=== PATIENT | female | born 1990 | race Caucasian/White ===

== ENCOUNTER 2018-01-27 05:25 | Outpatient (CLI) | END 2018-01-27 06:10 | disposition home or self-care (01) ==

== ENCOUNTER 2018-01-27 08:59 | Inpatient (IN) | END 2018-01-27 17:35 | disposition home or self-care (01) | DRG 775 ==

== ENCOUNTER 2019-03-16 07:20 | Inpatient (IN) | payer OTHER ==
[~2019-03-16] VITALS: Ht 170.2 cm; Wt 96.2 kg
[2019-03-16 08:38] VITALS: Ht 170.2 cm; Wt 96.2 kg
[2019-03-16] MEDS ORDERED: PNV11TAB PO (08:38)
[2019-03-16] MEDS ORDERED: OXYTOCIN 30 UNITS/LR 500 ML IV SCH ×2 (09:00→22:48)
[2019-03-16] MEDS ORDERED: MISOPROSTOL 200 MCG TAB PR PRN ×2 (09:00→23:00)
[2019-03-16] MEDS ORDERED: CARBOPROST 250 MCG INJ IM PRN ×2 (09:00→23:00)
[2019-03-16] MEDS ORDERED: OXYTOCIN 30 UNITS/LR 500 ML IV PRN ×2 (09:00→23:00)
[2019-03-16] MEDS ORDERED: CEFAZOLIN 2 GM/50 ML (PMX) 50 ML IVPB SCH (09:00)
[2019-03-16] MEDS ORDERED: METHYLERGONOVINE 0.2 MG INJ IM PRN ×2 (09:00→23:00)
[2019-03-16] MEDS: LACTATED RINGER'S 1,000 ML IV SCH ×2 (09:13→14:17)
--- NOTE | 2019-03-16 16:06 | PREAC ---
Date/Time of Note Date/Time of Note DATE: 03/16/19 TIME: 16:04 Anesthesia Eval and Record Evaluation Time Pre-Procedure Interview DATE: 03/16/19 TIME: 16:04 Age 28 Sex female NPO: 8 hrs Preoperative diagnosis Previous Planned procedure Repeat Past Medical History Past Medical History: None Surgery & Anesthesia Issues No known issue Meds Anticoagulation: No Beta Surya within 24 hr: No Reason Beta Surya not given: Pt. not on B-Surya Reported Medications [id number] ( 19) 1 Each Tablet, 1 TAB PO DAILY, TAB 03/16/19 Current Medications Lactated Ringer's 1,000 ml @ 125 mls/hr Q8H IV Last administered on 03/16/19at 14:17; Admin Dose 125 MLS/HR; Start 03/16/19 at 08:39 Cefazolin Sodium/ Dextrose 50 ml @ 100 mls/hr ONCE IVPB ; Start 03/16/19 at 09:00 Oxytocin/Lactated Ringer's 500 ml @ 125 mls/hr POST IV ; Start 03/16/19 at 09:00 Oxytocin/Lactated Ringer's 500 ml @ 0 mls/hr ONCE PRN IV .VAGINAL BLEEDING; Start 03/16/19 at 09:00 Methylergonovine Maleate (Methergine) 0.2 mg ONCE PRN IM .VAGINAL BLEEDING; Start 03/16/19 at 09:00 Carboprost Tromethamine (Hemabate) 250 mcg ONCE PRN IM .VAGINAL BLEEDING; Start 03/16/19 at 09:00 Misoprostol (Cytotec) 1,000 mcg ONCE PRN WI .VAGINAL BLEEDING; Start 03/16/19 at 09:00 Meds reviewed: Yes Allergies Coded Allergies: No Known Allergy (Unverified , 01/27/18) Allergies Reviewed: Yes Labs/Studies Labs Reviewed: Reviewed by anesthesiologist Result Diagram: 03/16/19 0900 Laboratory Tests 03/16/19 09:00 Blood Bank Test 03/16/19 09:00 Antibody Screen NEGATIVE Blood Type O POSITIVE Rh Immune Globulin Candidate NO test: N/A Pre-procedure Exam Airway: Adequate mouth opening Mallampati: Mallampati II Teeth: Normal Lung: Normal Heart: Normal ASA Physical Status ASA physical status: 2 Emergency: None Planned Anesthetic Neuraxial: Spinal Planned Pain Management Sub-arachniod narcotics Pre-operative Attestations Prior to commencing anesthesia and surgery, the patient was re-evaluated, there was verification of: *The patient's identity *The results of appropriate recent lab work and preoperative vital signs *The above evaluation not changing prior to induction *Anesthetic plan, risk benefits, alternative and complications discussed with patient/family; questions answered; patient/family understands, accepts and wishes to proceed. MORENA LAWRENCE MD Mar 16, 2019 16:06
[2019-03-16] MEDS ORDERED: PHENYLephrine (100 MCG/ML) 10ML SYG ONE (16:59)
[2019-03-16] MEDS ORDERED: OXYTOCIN 30 UNITS/LR 500 ML IV ONE (16:59)
[2019-03-16] MEDS ORDERED: ONDANSETRON 4 MG INJ ONE (17:00)
[2019-03-16] MEDS ORDERED: morphine SULFATE/PF (10 MG/10 ML) INJ ONE (17:00)
--- NOTE | 2019-03-16 18:28 | PAC ---
Date/Time of Note Date/Time of Note DATE: 03/16/19 TIME: 18:27 Post-Anesthesia Notes Post-Anesthesia Note Last documented vital signs VSS Activity: WNL Respiratory function: WNL Cardiovascular function: WNL Mental status: Baseline Pain reasonably controlled: Yes Hydration appropriate: Yes Nausea/Vomiting absent: Yes MORENA LAWRENCE MD Mar 16, 2019 18:28
--- NOTE | 2019-03-16 21:59 | HP ---
Date/Time of Note Date/Time of Note DATE: 03/16/19 TIME: 21:54 OB - History Hx of Present Free Text/Dictation Late entry note. 28-year-old -0-1-3 with single intrauterine at the 39 weeks with a PORTER of 03/23/2019 and history of 3 previous delivery desires repeat delivery and permanent surgical sterilization. She states good movement. She denies nausea, vomiting, shortness of breath, chest pain, headache, visual changes, vaginal bleeding or LOF. Risk factors: -Previous delivery x3 -Rubella nonimmune Chief Complaint: Scheduled for repeat delivery and bilateral tubal ligation Estimated Due Date: Mar 23, 2019 : 5 Para: 3 Spontaneous : 1 Therapeutic : 0 Care: Good Care Ultrasounds: Normal mid trimester US Obstetrical Complications: None Medical Complications: None Past Family/Social History * Past Medical, Surgical, Family and Obstetric Histories reviewed from chart. Blood Type: O+ Rubella: not immune RPR/VDRL: Negative GBS Status: Negative HBsAG: Negative OB Admission Exam Vital Signs Vital Signs Blood pressure 122/67, pulse rate 70/minutes, respiratory rate 14/minutes, temperature 98.1 Physical Exam HEENT: WNL Heart: Rhythm Normal Lungs: Clear Abdomen: WNL Extremities: Normal Membranes: Intact Heart Rate: 140's Accelerations: Accelerations Present Decelerations: No Decelerations Varibility: Moderate Contractions on Admission: None Last 72 hours Lab Results CBC & BMP 03/16/19 09:00 OB Assessment/Plan Other plan: 28 years old -0-1-3 with three previous delivery and single intrauterine at 39 weeks desires repeat delivery and permanent surgical sterilization -FHR: No sign of metabolic acidosis- Category I -Continuous EFM, toco -CBC, blood type and screen -Please see the orders -O+/Rubella: Nonimmune, will receive vaccine after delivery -GBS: Negative The risk of delivery and bilateral tubal ligation including but not limited to bleeding, infection, injury to other organs (bowel, bladder, ureter, vessels, nerves), injury to fetus, blood transfusion, blood transfusion related infection, risk of anesthesia, adhesion, needs for future , removal of uterus or any other indicated surgery, other contraceptive options including IUD, increased risk of ectopic if failure of procedure occurs discusse d with the patient and her family. She expressed understanding. All of her questions were answered. She signed the informed consent. PHYSICIAN'S VERIFICATION OF INFORMED CONSENT The patient was counseled regarding the procedure, its indications, risks, potential complications and alternatives and any questions were answered. Consent was obtained. PLANNED PROCEDURE/TREATMENT: delivery with possible using vacuum/forceps, bilateral tubal ligation and any other indicated surgery PHYSICIAN'S VERIFICATION OF INFORMED CONSENT FOR BLOOD TRANSFUSION: There is a reasonable possibility that blood transfusion will be necessary as a result of the patient's procedure. I have discussed the following with the patient/patient's legal customer account representative: An explanation of the benefits and ris ks of the transfusion of blood or blood products and the possible alternatives. All questions have been answered to the patient's satisfaction. INFORMED CONSENT:The patient has been informed of: The nature of the proposed care, treatment, services, medications, interventions or procedures. Potential benefits, risks or side effects, including potential problems related to recuperation. The likelihood of achieving care treatment and service goals. Reasonable alternatives to the proposed care, treatment and service. The relevant risks, benefits and side effects related to alternatives, incl uding the possible results of not receiving care, treatment and services. When indicated, any limitations on the confidentiality of information learned from or about the patient. If appropriate, the risks, benefits and alternatives of the drugs to be used for sedation/analgesia including moderate sedation. If appropriate, patient has been provided information on the risks, benefits and alternatives to the transfusion of blood and/or blood products. If appropriate, patient has been provided information regarding the [employer] Blood Act. YVONNE DENNIS Mar 16, 2019 21:58
--- NOTE | 2019-03-16 22:07 | OPR ---
Operative Report Planned Procedure Procedure date Mar 16, 2019 Procedure(s) 1. Repeat delivery 2. Bilateral tubal ligation Performed by see signature line Orthopedic Cast Specialist: AMI ELLER MD Anesthesiologist: MORENA LAWRENCE MD Pre-procedure diagnosis 28 years old -0-1-3 with three previous delivery and single intrauterine at 39 weeks desires repeat delivery and permanent surgical sterilization [id number] Anesthesia Type: [id number] spinal Post-Procedure Post-procedure diagnosis 28 years old -0-1-3 with three previous delivery and single intrauterine at 39 weeks desires repeat delivery and permanent surgical sterilization Findings 1. Normal uterus, fallopian tubes and ovaries 2. Viable male in cephalic presentation. 8 at one minute and 9 in 5 minutes. Weight: 6 pounds 15 ounces. Time of delivery: 17:37 3. Placenta with three vessel cord 4. Amniotic fluid - Clear Estimated Blood Loss: 500 - 600 mls Specimen(s) none Grafts/Implant(s) none Complication(s) none Pt Condition post procedure: stable Disposition: PACU Procedure Description INDICATION AND HISTORY: A 28 years old -0-1-3 with three previous delivery and single intrauterine at 39 weeks desires repeat delivery and permanent surgical sterilization. The risk of delivery and bilateral tubal ligation including but not limited to bleeding, infection, injury to other organs (bowel, bladder, ureter, vessels, nerves), injury to fetus, blood transfusion, blood transfusion related infection, risk of anesthesia, adhesion, needs for future , removal of uterus or any other indicated surgery, other contraceptive option including IUD, increased risk of ectopic if failure of procedure occurs discussed with the patient and her family. She expressed understanding. All of her questions were answered. She signed the informed consent. DESCRIPTION OF OPERATION: The patient was taken to the operating room, where she was identified and the procedure was verified. The patient received two gram of Ancef 30 minutes prior to surgery. Spinal anesthesia was placed by anesthesiology. The patient placed in the dorsal supine position with a left tilt. The heart rate was 1 28bpm. The patient was then prepped and draped in the normal sterile fashion. A Pfannenstiel skin incision was made and carried down to the fascia with knife. The fascia was incised in the midline and the fascial incision was carried laterally with Ballard scissors. The superior portion of the fascial incision was then grasped with Colin clamps and tented up and dissected off the underlying rectus muscle with sharp dissection. The lower portion of the fascial incision was then made in a similar fashion. The rectus muscle was and the peritoneum was entered. The peritoneal incision was then stretched and a bladder blade was inserted. Then, an incision was made in the lower uterine segment in a transverse fashion with a knife and extended bluntly. The was delivered atraumatically in cephalic presentation with the above findings. The umbilical cord was clamped and cut. The neonatology resuscitation team was present and the baby was handed to them. A cord blood sample was obtained for further evaluation. The placenta and membrane, which appeared normal were Removed. The uterus was exteriorized and cleared of all clot and debris. The uterus was then closed in a two layer fashion with 0-Monocryl. At the time of closure, hemostasis was noted. Then the left fallopian tube was identified and was grasped using Ammy clamp, segment of distal fallopian tube including fimbria was double ligated with O- plain, excised and sent to pathology. Same procedure repeated at the right side. Hemostasis of stump of both fallopian tube reassured. The gutters were irrigated. The peritoneum was reapproximated with 3-0 Vicryl. The muscle was reapproximated with 3-0 Vicryl. The fascia was approximated with 0-Vicryl in a running fashion. The subcutaneous tissue was re approximated with 3-0 vicryl. The skin was closed with 4-0 Monocryl. All instruments, sponges and needle counts were correct x3. The patient tolerated the procedure well. She transferred to the recovery room in stable condition. YVONNE DENNIS Mar 16, 2019 22:07
[2019-03-16] MEDS ORDERED: KETOROLAC 30 MG INJ IM ONE (22:44)
[2019-03-16] MEDS ORDERED: KETOROLAC 30 MG INJ IV ONE (22:58)
[2019-03-16] MEDS ORDERED: LANOLIN HPA 1 PKT TOP PRN (23:00)
[2019-03-16] MEDS ORDERED: HYDROmorphONE 1 MG/5 ML IV SYRINGE IV PRN ×3 (23:00)
[2019-03-16] MEDS ORDERED: MEPERIDINE 25 MG INJ IV PRN (23:00)
[2019-03-16] MEDS ORDERED: morphine 2 MG INJ IV PRN ×2 (23:00)
[2019-03-16] MEDS ORDERED: METHYLERGONOVINE 0.2 MG TAB PO PRN (23:00)
[2019-03-16] MEDS ORDERED: TRIMETHOBENZAMIDE 100 MG/ML VIAL IM PRN ×2 (23:00)
[2019-03-16] MEDS ORDERED: KETOROLAC 30 MG INJ IV PRN (23:00)
[2019-03-16] MEDS ORDERED: OXYCODONE/ACETAMINOPHEN (5/325) TAB PO PRN ×2 (23:00)
[2019-03-16] MEDS ORDERED: NALBUPHINE HCL (10 MG/1 ML) INJ IV PRN (23:00)
[2019-03-16] MEDS ORDERED: ALBUTEROL 0.083% (NEB) 2.5 MG/3 ML AMP HHN PRN (23:00)
[2019-03-16] MEDS ORDERED: EPHEDrine 25 MG/5 ML SYG IV PRN (23:00)
[2019-03-16] MEDS ORDERED: ONDANSETRON 4 MG INJ IV PRN ×2 (23:00)
[2019-03-16] MEDS ORDERED: LABETALOL HCL 20MG INJ IV PRN (23:00)
[2019-03-16] MEDS ORDERED: hydrALAzine 20 MG INJ IV PRN (23:00)
[2019-03-16] MEDS ORDERED: FENTAnyl 50 MCG/ML VIAL IV PRN ×3 (23:00)
[2019-03-16] MEDS ORDERED: DIPHENHYDRAMINE 50 MG INJ IV PRN ×2 (23:00)
[2019-03-16] MEDS ORDERED: IPRATROPIUM (NEB) 0.5 MG/2.5 ML AMP HHN PRN (23:00)
[2019-03-16] MEDS ORDERED: MIDAZOLAM 1 MG/ML 2 ML INJ IV PRN (23:00)
[2019-03-16] MEDS ORDERED: NALOXONE (0.4 MG/ML) INJ IV PRN (23:00)
[2019-03-16 23:10] VITALS: BP 101/55; PULSE 72; RESP 18
[2019-03-17 04:13] VITALS: BP 94/65; PULSE 74; RESP 18
[2019-03-17] MEDS: DEXTROSE 5%-LR 1,000 ML IV SCH ×3 (04:53→14:04)
[2019-03-17 08:05] VITALS: BP 97/55; PULSE 63; RESP 16
[2019-03-17] MEDS: SENNA/DOCUSATE NA (8.6MG/50MG) TAB PO SCH ×2 (09:22→22:57)
[2019-03-17] MEDS ORDERED: DIPHTH/TET/ACEL PERTUSS (ADULT) 0.5 ML VIAL IM* ONE (11:00)
[2019-03-17 12:01] VITALS: BP 109/60; PULSE 77; RESP 20
[2019-03-17 15:40] VITALS: BP 108/59; PULSE 88; RESP 18
[2019-03-17] MEDS: IBUPROFEN 800 MG TAB PO SCH (18:18)
[2019-03-17 20:00] VITALS: BP 103/62; PULSE 93; RESP 18
[2019-03-17] MEDS: HYDROCODONE/APAP (5/325) TAB PO SCH (22:57)
[2019-03-18] MEDS: DEXTROSE 5%-LR 1,000 ML IV SCH ×2 (01:09→06:48)
[2019-03-18] MEDS: IBUPROFEN 800 MG TAB PO SCH ×3 (02:33→17:35)
[2019-03-18 04:00] VITALS: BP 105/56; PULSE 70; RESP 18
[2019-03-18] MEDS: HYDROCODONE/APAP (5/325) TAB PO SCH ×3 (06:04→22:07)
[2019-03-18 08:00] VITALS: BP 104/61; PULSE 76; RESP 18
[2019-03-18] MEDS: SENNA/DOCUSATE NA (8.6MG/50MG) TAB PO SCH ×2 (09:01→22:07)
[2019-03-18] MEDS: MAGNESIUM HYDROXIDE 30ML CUP PO PRN (09:01)
[2019-03-18] MEDS: HYDROCODONE/APAP (5/325) TAB PO PRN (14:36)
[2019-03-18 15:41] VITALS: BP 100/55; PULSE 81; RESP 18
--- NOTE | 2019-03-18 16:34 | QN ---
Documentation Comment no c/o VSS afebrile abdomen soft wound dry calf neg for tenderness lochia min CBC 8500 8.4/27.5/271 A stable s/p Repeat c/s P MICHELLE Romero MD Mar 18, 2019 16:34
[2019-03-18 20:15] VITALS: BP 117/68; PULSE 91; RESP 19
[2019-03-19] MEDS: IBUPROFEN 800 MG TAB PO SCH ×2 (01:39→10:42)
[2019-03-19] MEDS: HYDROCODONE/APAP (5/325) TAB PO SCH ×2 (05:22→14:01)
[2019-03-19 05:44] VITALS: BP 85/52; PULSE 80; RESP 19
[2019-03-19 08:00] VITALS: BP 108/70; PULSE 79; RESP 18
[2019-03-19] MEDS: MAGNESIUM HYDROXIDE 30ML CUP PO PRN (08:06)
[2019-03-19] MEDS: SENNA/DOCUSATE NA (8.6MG/50MG) TAB PO SCH (08:06)
[2019-03-19] MEDS: HYDROCODONE/APAP (5/325) TAB PO PRN (08:07)
[2019-03-19] MEDS ORDERED: FERROUS GLUCONATE (EC) 325 MG TAB PO SCH (09:00)
[2019-03-19] MEDS ORDERED: DIPHTH/TET/ACEL PERTUSS (ADULT) 0.5 ML VIAL IM* ONE (09:00)
[2019-03-19] MEDS ORDERED: MEASLES,MUMPS,RUBELLA VACCINE INJ SC* ONE (09:00)
--- NOTE | 2019-03-20 16:22 | PN ---
Date/Time of Note Date/Time of Note DATE: 03/20/19 TIME: 16:20 OB Subjective Subjective Subjective Late entry note. Patient seen on 03/17/2019 POD#1 Patient is doing well. She denies nausea, vomiting, shortness of breath, chest pain, headache. She has been ambulating without difficulty, tolerating regular diet. Pain is well controlled on current medications OB Objective Objective Objective General: AAO X 3, comfortable, NAD, appropriate mood and affect. Heart: RRR +S1, +S2, no murmurs. Lungs: Clear to auscultation (B/L), no rales, rhonchi or wheezing. ABD: +BS. Soft, non-tender. Uterus 2 cm below umbilicus Incision: Clear, dry, intact. No erythema, drainage or induration. Flank: No CVA tenderness (B/L) LE: Mild edema. No clubbing, cyanosis, thigh or calf tenderness (B/L). Homans 'sign is negative OB Assessment/Plan Other plan: 28 years old 5 para 4-0-1-4 s/p repeat delivery and bilateral tubal ligation. POD#1 - AF, VSS - Baby is doing well, at bed side. She is bonding well - Continue current management YVONNE DENNIS Mar 20, 2019 16:22
--- NOTE | 2019-03-20 16:23 | DS ---
Date/Time of Note Date/Time of Note DATE: 03/20/19 TIME: 16:22 Obstetrical Discharge Record Final Diagnosis Final Diagnosis: Term delivered Other Final Diagnosis Late entry note. Patient seen on 03/19/2019 28 years old 5 para 4-0-1-4 s/p repeat delivery and bilateral tubal ligation. POD#3. course was unremarkable. She is ambulating and tolerating regular diet. She is voiding without difficulty, had bowel movement. Pain is controlled on current medication. - AF, VSS - Baby is doing well, at bed side. She is bonding well - Discharge home - Rx and instruction given - Follow up in one and 6 weeks Section Section: Repeat Condition on Discharge Physical Assessment Voiding: Yes Bowel Movement: Yes Breast: Soft, non-tender Fundus: Firm Calf Tenderness: No Patient Condition: Stable YVONNE DENNIS Mar 20, 2019 16:23
--- NOTE | 2019-03-20 16:34 | DELSUM ---
Delivery Summary A-C Datetime Report Generated by CPN: 03/20/2019 16:34 DELIVERY PERSONNEL Consignee: Villondo, Eli MATERNAL INFORMATION Delivery Anesthesia: Spinal Medications in Delivery: See anesthesia notes Delivery QBL (ml): 600 Placenta Cultured: No Maternal Complications: None LABOR SUMMARY EDC: 03/23/2019 00:00 No. Babies in Womb: 1 Attempted: No Labor Anesthesia: None LABOR INFORMATION Reason for Induction: Not Applicable Oxytocin: N/A Group B Beta Strep: Negative Antibiotics # of Doses: 1 Antibiotics Time of Last Dose: 03/16/2019 17:10 Steroids Given: None Reason Steroids Not Administered: Not Applicable MEMBRANES Membranes Rupture Method: Artificial Rupture of Membranes: 03/16/2019 17:36 Length of Rupture (hr): 0.02 Amniotic Fluid Color: Clear Amniotic Fluid Amount: Moderate Amniotic Fluid Odor: None STAGES OF LABOR Stage 3 hr: 0 Stage 3 min: 2 CSECTION DELIVERY Primary Indication: Repeat Elective CSection Urgency: Non Elective CSection Incidence: Repeat Labor: No Labor Elective: Nonelective CSection Incision: Lower Uterine Transverse Sterilization Procedure: [place] BABY A INFORMATION Infant Delivery Date/Time: 03/16/2019 17:37 Method of Delivery: Born in Route : No : N/A Forceps: N/A Vacuum Extraction: N/A Shoulder Dystocia : N/A SHOULDER DYSTOCIA BABY A Delivery Date/Time: 03/16/2019 17:37 PRESENTATION/POSITION BABY A Presentation: Cephalic Cephalic Presentation: Vertex Vertex Position: Left Occipital Anterior Breech Presentation: N/A PLACENTA INFORMATION BABY A Placenta Delivery Time : 03/16/2019 17:39 Placenta Method of Delivery: Manual Removal Placenta Status: Delivered SCORES BABY A Heart Rate 1 min: >100 bpm Resp Effort 1 min: Good Cry Reflex Irritability 1 min: Cough/Sneeze/Pulls Away Muscle Tone 1 min: Active Motion Color 1 min: Blue/Pale Resuscitation Effort 1 min: Tactile Stimulation SCORE 1 MIN: 8 Heart Rate 5 min: >100 bpm Resp Effort 5 min: Good Cry Reflex Irritability 5 min: Cough/Sneeze/Pulls Away Muscle Tone 5 min: Active Motion Color 5 min: Body [place], Extremit Blue Resuscitation Effort 5 min: Tactile Stimulation SCORE 5 MIN: 9 INFORMATION BABY A Gestational Age at Delivery: 39.0 Gestational Status: Full Term- 39- 40.6 Weeks Outcome : Liveborn Infant Condition : Stable Sex: Female IDENTIFICATION/MEDS BABY A ID Band Number: [id number] ID Band Location: Right Leg; Left Arm Sensor Applied: Yes Sensor Number: [id number] Sensor Location : Cord Clamp Vitamin K Given : Not Given Erythromycin Given: Not Given WEIGHT/LENGTH BABY A Infant Birthweight (gm): 3140 Infant Weight (lb): 6 Infant Weight (oz): 15 Infant Length (in): 19.00 Length (cm): 48.26 CORD INFORMATION BABY A No. Cord Vessels: 3 Nuchal Cord : N/A Cord Blood Taken: No Infant Suction: Mouth; Nose ASSESSMENT BABY A Infant Complications: None Physical Findings at Delivery: Within Normal Limits Respirations: Appears Normal Roll Cutting Operator/ALS Called : No Care By: Malou Evans Transferred To: Remains with Mother
== END 2019-03-19 16:33 | disposition home or self-care (01) | DRG 785 ==
LOC: L-D 07:20 → PP1 23:04
PROVIDERS: ADMIT Obstetrics & Gynecology; ATTEND Obstetrics & Gynecology
PROC: 0UT70ZZ Resection of Bilateral Fallopian Tubes, Open Approach (ICD-10-PCS; 2019-03-16)
PROC: 10D00Z1 Extraction of Products of Conception, Low, Open Approach (ICD-10-PCS; principal; 2019-03-16 10:30)
DX: O65.5 Obstructed labor due to abnormality of maternal pelvic organs (principal); O34.211 Maternal care for low transverse scar from previous cesarean delivery; Z3A.39 39 weeks gestation of pregnancy; Z37.0 Single live birth; Z30.2 Encounter for sterilization
CPT/HCPCS: 80307; 85025; 85610; 85730; 86592; 86850; 86900; 86901; 87340; 88302; 90715; 99464; J0690; J1885; J2274; J2370; J2405; J2590; J7120; J7121